=== PATIENT | male | born 1945 | race Caucasian/White ===

== ENCOUNTER 2017-10-24 10:25 | Observation (INO) | payer OTHER ==
[2017-10-24 10:48] VITALS: BMI 28.6
--- NOTE | 2017-10-24 10:48 | PDOC ---
History of Present Illness - General Chief Complaint: Cold Symptoms Stated Complaint: COUGH,SOB Time Seen by Provider: 10/24/17 10:48 History Source: Patient Exam Limitations: No Limitations - History of Present Illness Initial Comments: 10/24/17 10:48 72y M hx of COPD (no o2 at baseline), prostate ca presents with productive cough of white sputum, and nasal congestion. pt went to a urgent care and was started on a prednisone and abx yesterday (started seng prednisone but hasnt started zpack) - pt with persistent sob so presents today. pt denies any fever/ chills, chest pain, n/v, diaprhoesis, leg swelling, hemoptysis. Pt notes he gets similar symptoms approx twice a year, but has never been hospitalized for it.., his O2 ranges from the low 90s when he has these symptoms to the mid 90s at baseline. Pt denies any sick contact but notes he went to a and was exposed to many people. No recent travel. Past History - Past Medical History Allergies/Adverse Reactions: Allergies Allergy/AdvReac Type Severity Reaction Status Date / Time No Known Allergies Allergy Verified 10/24/17 10:31 Home Medications: Ambulatory Orders Albuterol Sulfate [Proventil HFA Inhaler -] 1 - 2 inh PO PRN PRN 10/24/17 Fluticasone/Salmeterol [Advair 250-50 Diskus] 1 each IH BID 10/24/17 Prednisone 40 mg PO DAILY 10/24/17 Tiotropium [place] [Spiriva] 1 inh PO DAILY 10/24/17 COPD: Yes Other medical history: PROSTATE CA - Suicide/Smoking/Psychosocial Hx Smoking History: Never smoked Have you smoked in the past 12 months: No If you are a former smoker, when did you quit?: 1999 Information on smoking cessation initiated: No Hx Alcohol Use: No Drug/Substance Use Hx: No Substance Use Type: None Review of Systems - Review of Systems Able to Perform ROS?: Yes Comments:: 10/24/17 11:31 Constitutional - no reported Fever, Chills, HEENT: no reported vision changes, sore throat Respiratory: +cough, sob, no reported hemoptysis Cardiac: no reported chest pain, palpitations, light headedness, leg swelling Abd/GI: no reported abd pain, nausea, vomiting, blood per rectum, melena, diarrhea : no reported dysuria, frequency, discharge Musculskelatal - no reported back pain, joint swelling skin - no reported bruising, erythema, rash neurological: no reported headache, numbness, focal weakness, tingling, ataxia, hematologic: no reported easy bruising, easy bleeding *Physical Exam - Vital Signs Last Vital Signs Temp Pulse Resp BP Pulse Ox 97.8 F 110 H 20 168/102 93 L 10/24/17 10:25 10/24/17 10:25 10/24/17 10:25 10/24/17 10:25 10/24/17 10:25 - Physical Exam Comments: 10/24/17 11:31 GENERAL: The patient is awake, alert, and fully oriented, Nontoxic - in no acute distress. HEAD: Normocephalic, atraumatic. EYES: extraocular movements intact, sclera anicteric, conjunctiva clear. ENT: Normal voice, Moist mucous membranes. NECK: Normal range of motion, supple LUNGS: Bilateral expiratory wheezing, decreased air movement, no acute respiratory distress, speaking complete sentences. HEART: Regular rate and rhythm, normal S1 and S2 without murmur, rub or gallop. ABDOMEN: Soft, nontender, normoactive bowel sounds. No guarding, no rebound. . No CVA tenderness EXTREMITIES: Normal range of motion, no edema. negative homans sign NEUROLOGICAL: No facial assymetry, Normal speech, PSYCH: Normal mood, normal affect. SKIN: Warm, Dry, normal turgor, Heart Score/ECG Review - ECG Impressions Comment:: 10/24/17 12:32 Twelve-lead EKG was performed and reviewed by me. There is normal sinus rhythm with a rate of 120 The axis is normal. The intervals are normal. There is normal R wave progression nonspecific ST abnormalities Impression: sinus tachycardia Medical Decision Making - Medical Decision Making 10/24/17 11:32 Suspect COPD exacerbation We'll obtain chest x-ray, we have DuoNeb Will reassess the patient is a patient's feeling improved and is able to ambulate without feeling dyspneic anticipate possible discharge. However if the patient does not feel better, or dyspneic with exertion will need further management 10/24/17 12:10 pt was ambuilated was hypxoic to 86, also dyspneic will admit for further management of COPD exaerbation will obtina blood work will give levaquin and mag pt already took his prednisone this morning 10/24/17 12:[address] Hall - will admit for further management of COPD exacerbation and hypoxia Case discussed in detail with admitting physician including history, physical exam and ancillary studies. Admitting physician has assumed care for the patient, will follow all pending diagnostics and will complete the evaluation and treatment. *DC/Admit/Observation/Transfer Diagnosis at time of Disposition: COPD exacerbation, Hypoxia - Discharge Dispostion Condition at time of disposition: Guarded Decision to Admit order: Yes - Referrals - Patient Instructions - Post Discharge Activity
[2017-10-24] MEDS ORDERED: ALBUTEROL SO4 2.5/IPRATROPIUM 0.5 INH SOL 3 ML VIAL.NEB. NEB ONE (10:59)
[2017-10-24] MEDS ORDERED: MAGNESIUM 1GM/D5W - 1 GM/100 ML IVPB IVPB ONE (12:41)
[2017-10-24 13:09] LABS: HEMOGLOBIN 17.6 GM/dl (11.7-16.9)
[2017-10-24 13:12] LABS: BASO % 0.3 % (0-2.0); EOS % 0.1 % (0-4.5); HEMATOCRIT 50.2 % (35.4-49); LYMPH % 8.7 % (8-40); MCH 28.6 pg (25.7-33.7); MCHC 35.1 g/dl (32.0-35.9); MEAN CELL VOLUME 81.5 fl (80-96); MEAN PLT VOLUME 7.5 fl (7.5-11.1); MONO % 4.6 % (3.8-10.2); NEUT % 86.3 % (42.8-82.8); PLATELET COUNT 213 K/MM3 (134-434); RBC 6.17 M/mm3 (4.00-5.60); RDW 13.9 % (11.9-15.9); WHITE BLOOD COUNT 11.1 K/mm3 (4.0-10.8)
[2017-10-24 13:25] LABS: ALBUMIN 4.3 g/dl (3.5-5.0); ALK PHOS 43 U/L (32-92); ANION GAP 10 (8-16); BILIRUBIN,TOTAL 1.2 mg/dl (0.2-1.0); BLOOD UREA NITROGEN 16 mg/dl (7-18); CALCIUM 8.8 mg/dl (8.4-10.2); CHLORIDE 100 mmol/L (98-107); CO2 23 mmol/L (22-28); CREATININE 0.8 mg/dl (0.6-1.3); GLUCOSE,RANDOM 125 mg/dl (74-106); POTASSIUM 4.1 mmol/L (3.5-5.1); SGOT/AST 28 U/L (10-42); SGPT/ALT 26 U/L (10-40); SODIUM 133 mmol/L (136-145); TOT PROT 7.6 g/dl (6.4-8.3)
[2017-10-24] MEDS ORDERED: SODIUM CHLORIDE 500 ML IV STA (14:10)
--- NOTE | 2017-10-24 14:12 | HP ---
Admitting History and Physical - Primary Care Physician PCP: Eloy Hall - Admission History of Present Illness: 72y M hx of COPD (no o2 at baseline), prostate ca presents with productive cough of white sputum, and nasal congestion. pt went to a urgent care and was started on a prednisone and abx yesterday (started seng prednisone but hasnt started zpack) - pt with persistent sob so presents today. pt denies any fever/ chills, chest pain, n/v, diaprhoesis, leg swelling, hemoptysis. Pt notes he gets similar symptoms approx twice a year, but has never been hospitalized for it.., his O2 ranges from the low 90s when he has these symptoms to the mid 90s at baseline. Pt denies any sick contact but notes he went to a and was exposed to many people. No recent travel. - Past Medical History Pulmonary: Yes: COPD - Smoking History Smoking history: Never smoked Have you smoked in the past 12 months: No If you are a former smoker, when did you quit?: 1999 - Alcohol/Substance Use Hx Alcohol Use: No Home Medications - Allergies Allergies/Adverse Reactions: Allergies Allergy/AdvReac Type Severity Reaction Status Date / Time No Known Allergies Allergy Verified 10/24/17 10:31 - Home Medications Home Medications: Ambulatory Orders Albuterol Sulfate [Proventil HFA Inhaler -] 1 - 2 inh PO PRN PRN 10/24/17 Fluticasone/Salmeterol [Advair 250-50 Diskus] 1 each IH BID 10/24/17 Prednisone 40 mg PO DAILY 10/24/17 Tiotropium [place] [Spiriva] 1 inh PO DAILY 10/24/17 Physical Examination Vital Signs: Vital Signs Temperature 97.9 F 10/24/17 11:48 Pulse Rate 119 H 10/24/17 11:48 Respiratory Rate 20 10/24/17 11:48 Blood Pressure 177/89 10/24/17 11:48 O2 Sat by Pulse Oximetry (%) 94 L 10/24/17 11:48 Constitutional: Yes: No Distress HENT: Yes: Atraumatic Neck: Yes: Supple Cardiovascular: Yes: Regular Rate and Rhythm Respiratory: Yes: Rhonchi, Wheezes Gastrointestinal: Yes: Normal Bowel Sounds Extremities: Yes: WNL Neurological: Yes: Alert, Oriented Labs: CBC, BMP 10/24/17 12:30 10/24/17 12:30 Imaging - Results X-ray: Report Reviewed Problem List - Problems (1) COPD exacerbation Assessment/Plan: iv steroids duo nebs abx for uri Code(s): J44.1 - CHRONIC OBSTRUCTIVE PULMONARY DISEASE W (ACUTE) EXACERBATION (2) Hypoxia Assessment/Plan: oxygen prn Code(s): R09.02 - HYPOXEMIA Assessment/Plan Laboratory Tests 10/24/17 10/24/17 12:30 12:30 WBC 11.1 H RBC 6.17 H Hgb 17.6 H Hct 50.2 H MCV 81.5 MCH 28.6 MCHC 35.1 RDW 13.9 Plt Count 213 MPV 7.5 Absolute Neuts (auto) 9.6 Neutrophils % 86.3 H Lymphocytes % 8.7 Monocytes % 4.6 Eosinophils % 0.1 Basophils % 0.3 Sodium 133 L Potassium 4.1 Chloride 100 Carbon Dioxide 23 Anion Gap 10 BUN 16 Creatinine 0.8 Creat Clearance w eGFR > 60 Random Glucose 125 H Calcium 8.8 Total Bilirubin 1.2 H AST 28 ALT 26 Alkaline Phosphatase 43 Total Protein 7.6 Albumin 4.3 Active Medications Generic Name Dose Route Start Last Admin Trade Name Freq PRN Reason Stop Dose Admin Sodium Chloride 500 mls @ 500 mls/hr 10/24/17 14:10 Normal Saline - IV 10/24/17 15:09 ASDIR STA
[2017-10-24] MEDS ORDERED: ALBUTEROL SO4 2.5/IPRATROPIUM 0.5 INH SOL 3 ML VIAL.NEB. NEB PRN (14:13)
[2017-10-24] MEDS ORDERED: ACETAMINOPHEN 325 MG TABLET (FP) PO PRN (14:15)
[2017-10-24] MEDS: methylPREDNISolone NA SUCC 125 MG/2 ML VIAL IVPUSH SCH (17:31)
[2017-10-24] MEDS: CEFTRIAXONE 1 GM/50 ML BAG IVPB SCH (17:31)
[2017-10-24] MEDS: TIOTROPIUM BROMIDE 18 MCG CAPSULES IH SCH (19:44)
[2017-10-24] MEDS: BUDESONIDE/FORMETEROL FUMARATE 80/4.5 mcg INHALER IH SCH (21:57)
[2017-10-25] MEDS ORDERED: PT OWN MED DRAWER 7, Y5N ONE ×2 (02:08→10:33)
[2017-10-25] MEDS: methylPREDNISolone NA SUCC 125 MG/2 ML VIAL IVPUSH SCH ×2 (02:09→10:37)
[2017-10-25 06:09] VITALS: BP 142/62; PULSE 93; TEMP 98.1
--- NOTE | 2017-10-25 09:29 | DS ---
Physical Examination Vital Signs: Vital Signs Temperature 98.1 F 10/25/17 06:00 Pulse Rate 93 H 10/25/17 06:00 Respiratory Rate 20 10/25/17 06:00 Blood Pressure 142/62 10/25/17 06:00 O2 Sat by Pulse Oximetry (%) 94 L 10/25/17 06:00 Constitutional: Yes: No Distress HENT: Yes: Atraumatic Neck: Yes: Supple Cardiovascular: Yes: Regular Rate and Rhythm Respiratory: Yes: Rhonchi Gastrointestinal: Yes: Normal Bowel Sounds Extremities: Yes: WNL Edema: No Neurological: Yes: Alert, Oriented Labs: CBC, BMP 10/24/17 12:30 10/24/17 12:30 Discharge Summary Reason For Visit: COPD Current Active Problems COPD exacerbation (Acute) Hypoxia (Acute) Condition: Guarded - Instructions Diet, Activity, Other Instructions: continue your prednisone as given by urgent care see your doctor next week Disposition: HOME - Home Medications Comprehensive Discharge Medication List: Ambulatory Orders Albuterol Sulfate [Proventil HFA Inhaler -] 1 - 2 inh PO PRN PRN 10/24/17 Fluticasone/Salmeterol [Advair 250-50 Diskus] 1 each IH BID 10/24/17 Prednisone 40 mg PO DAILY 10/24/17 Tiotropium [place] [Spiriva] 1 inh PO DAILY 10/24/17 Amoxicillin/Potassium Clav [Augmentin 875-125 Tablet] 1 each PO BID #14 tablet 10/25/17 [facility] home
--- NOTE | 2017-10-25 09:59 | CON.ID ---
Consult Consult Specialty:: infectious diseases Reason for Consultation:: bronchitis,copd - History of Present Illness Chief Complaint: cough,sob History of Present Illness: 72y M hx of COPD prostate ca presents with productive cough of white sputum, and nasal congestion. pt went to a urgent care and was started on a prednisone and abx yesterday (started seng prednisone but hasnt started zpack) - pt with persistent sob so presents today. pt denies any fever/chills, chest pain, n/v, diaprhoesis, leg swelling, hemoptysis. Pt notes he gets similar symptoms approx twice a year, but has never been hospitalized for it.., his O2 ranges from the low 90s when he has these symptoms to the mid 90s at baseline. Pt denies any sick contact but notes he went to a and was exposed to many people. No recent travel. patient is here with his and does mention he is very sob and did not improve for couple of days and that is why he came to the hospital currently he is sob but stable - History Source History Provided By: Patient Limitations to Obtaining History: No Limitations - Past Medical History Pulmonary: Yes: COPD - Alcohol/Substance Use Hx Alcohol Use: No - Smoking History Smoking history: Never smoked Have you smoked in the past 12 months: No If you are a former smoker, when did you quit?: 1999 Home Medications - Allergies Allergies/Adverse Reactions: Allergies Allergy/AdvReac Type Severity Reaction Status Date / Time No Known Allergies Allergy Verified 10/24/17 10:31 - Home Medications Home Medications: Ambulatory Orders Albuterol Sulfate [Proventil HFA Inhaler -] 1 - 2 inh PO PRN PRN 10/24/17 Fluticasone/Salmeterol [Advair 250-50 Diskus] 1 each IH BID 10/24/17 Prednisone 40 mg PO DAILY 10/24/17 Tiotropium [place] [Spiriva] 1 inh PO DAILY 10/24/17 Amoxicillin/Potassium Clav [Augmentin 875-125 Tablet] 1 each PO BID #14 tablet 10/25/17 Review of Systems - Review of Systems Constitutional: reports: No Symptoms Eyes: reports: No Symptoms HENT: reports: No Symptoms Neck: reports: No Symptoms Cardiovascular: reports: No Symptoms Respiratory: reports: SOB, SOB on Exertion, Wheezing Gastrointestinal: reports: No Symptoms Genitourinary: reports: No Symptoms Musculoskeletal: reports: No Symptoms Integumentary: reports: No Symptoms Neurological: reports: No Symptoms Endocrine: reports: No Symptoms Hematology/Lymphatic: reports: No Symptoms Psychiatric: reports: No Symptoms Physical Exam Vital Signs: Vital Signs Temperature 98.1 F 10/25/17 06:00 Pulse Rate 93 H 10/25/17 06:00 Respiratory Rate 20 10/25/17 06:00 Blood Pressure 142/62 10/25/17 06:00 O2 Sat by Pulse Oximetry (%) 94 L 10/25/17 06:00 Constitutional: Yes: Well Nourished, No Distress, Calm Cardiovascular: Yes: Regular Rate and Rhythm Respiratory: Yes: Regular, On Nasal O2, Poor Air Entry, Rhonchi, Wheezes Gastrointestinal: Yes: Normal Bowel Sounds, Soft Musculoskeletal: Yes: WNL Extremities: Yes: WNL Neurological: Yes: Alert, Oriented Psychiatric: Yes: Alert, Oriented Labs: CBC, BMP 10/24/17 12:30 10/24/17 12:30 Imaging - Results Chest X-ray: Report Reviewed, Image Reviewed Assessment/Plan Problem List - Problems (1) COPD exacerbation Code(s): J44.1 - CHRONIC OBSTRUCTIVE PULMONARY DISEASE W (ACUTE) EXACERBATION (2) Hypoxia Code(s): R09.02 - HYPOXEMIA i am not too impressed with his findings but knowing patients history will start him on abx if patient remains stable will switch him to oral abx tomorrow plan abx incentive venita rest as per the team
--- NOTE | 2017-10-25 10:06 | PN ---
Progress Note, Physician History of Present Illness: stable looks much better breathing better off of nasal canula - Current Medication List Current Medications: Active Medications Acetaminophen (Tylenol -) 650 mg PO Q6H PRN PRN Reason: FEVER Albuterol/Ipratropium (Duoneb -) 1 amp NEB Q4H PRN PRN Reason: SHORTNESS OF BREATH Last Admin: 10/24/17 17:31 Dose: 1 amp Budesonide/Formoterol Fumarate (Symbicort 80/4.5mcg -) 2 puff IH BID ROBYN Last Admin: 10/24/17 21:57 Dose: 2 puff Ceftriaxone Sodium (Rocephin 1gm Ivpb (Pre-Docked)) 1 gm in 50 mls @ 100 mls/ hr IVPB DAILY ROBYN; Protocol Last Admin: 10/24/17 17:31 Dose: 100 mls/hr Methylprednisolone Sodium Succinate (Solu-Medrol -) 60 mg IVPUSH Q8H-IV ROBYN Last Admin: 10/25/17 02:09 Dose: 60 mg Tiotropium [place] (Spiriva -) 1 puff IH DAILY ROBYN Last Admin: 10/24/17 19:44 Dose: Not Given - Objective Vital Signs: Vital Signs Temperature 98.1 F 10/25/17 06:00 Pulse Rate 93 H 10/25/17 06:00 Respiratory Rate 20 10/25/17 06:00 Blood Pressure 142/62 10/25/17 06:00 O2 Sat by Pulse Oximetry (%) 94 L 10/25/17 06:00 Constitutional: Yes: No Distress, Calm Cardiovascular: Yes: Regular Rate and Rhythm Respiratory: Yes: Regular, Poor Air Entry (bases) Gastrointestinal: Yes: Normal Bowel Sounds, Soft Musculoskeletal: Yes: WNL Extremities: Yes: WNL Neurological: Yes: Alert, Oriented Psychiatric: Yes: Alert, Oriented Labs: CBC, BMP 10/24/17 12:30 10/24/17 12:30 Assessment/Plan Problem List - Problems (1) COPD exacerbation Code(s): J44.1 - CHRONIC OBSTRUCTIVE PULMONARY DISEASE W (ACUTE) EXACERBATION (2) Hypoxia Code(s): R09.02 - HYPOXEMIA plan doing well can be d/gloria home on oral augmentin neb treatment follow up
[2017-10-25] MEDS: TIOTROPIUM BROMIDE 18 MCG CAPSULES IH SCH (10:36)
[2017-10-25] MEDS: BUDESONIDE/FORMETEROL FUMARATE 80/4.5 mcg INHALER IH SCH (10:37)
[2017-10-25] MEDS: CEFTRIAXONE 1 GM/50 ML BAG IVPB SCH (10:37)
--- NOTE | 2017-10-26 09:17 | EKG ---
Test Reason : Blood Pressure : / mmHG Vent. Rate : 120 BPM Atrial Rate : 120 BPM P-R Int : 150 ms QRS Dur : 092 ms QT Int : 334 ms P-R-T Axes : 077 016 077 degrees QTc Int : 472 ms SINUS TACHYCARDIA NONSPECIFIC ST ABNORMALITY ABNORMAL ECG NO PREVIOUS ECGS AVAILABLE Confirmed by YASBEL CHADWICK, MARIBEL ([id number]) on 10/26/2017 9:17:20 AM Referred By: SLICK Confirmed By:MARIBEL GRADY MD
== END 2017-10-25 11:00 | disposition home or self-care (01) ==
LOC: FER 10:25 → FM/S 12:31 → UNDOADMIN 12:31 → INTOOBSV 14:14 → FM/S 14:14
PROVIDERS: ADMIT Internal Medicine; ATTEND Internal Medicine
PROC: 3E03329 Introduction of Other Anti-infective into Peripheral Vein, Percutaneous Approach (ICD-10-PCS; principal; 2017-10-24)
PROC: 3E0333Z Introduction of Anti-inflammatory into Peripheral Vein, Percutaneous Approach (ICD-10-PCS; 2017-10-24)
PROC: 3E0337Z Introduction of Electrolytic and Water Balance Substance into Peripheral Vein, Percutaneous Approach (ICD-10-PCS; 2017-10-24)
DX: J44.1 Chronic obstructive pulmonary disease with (acute) exacerbation (principal); R09.02 Hypoxemia; Z85.46 Personal history of malignant neoplasm of prostate
CPT/HCPCS: 36415; 71046-TC-FY; 80053; 85025; 93005; 96361; 96365; 96366; 96368; 96375; 99285-25; G0378; J7620

== ENCOUNTER 2018-05-09 16:17 | Emergency (ER) | payer OTHER ==
[2018-05-09 16:41] VITALS: BP 136/91; PULSE 98; TEMP 98.1; BMI 28.5
--- NOTE | 2018-05-09 16:53 | PDOC ---
History of Present Illness - General Chief Complaint: Nasal Bleeding Stated Complaint: NOSEBLEED Time Seen by Provider: 05/09/18 16:30 History Source: Patient Exam Limitations: No Limitations - History of Present Illness Initial Comments: 05/09/18 16:49 HPI 73 YOM with h/o CLL, in remission, COPD (no O2 dependence, on inhalers) presenting with epistaxis since 12pm. of note he has been having intermittent episodes of epistaxis x 1 week; last week 1 episode lasting 1-2 hours. Two episodes this week, with second presentation today. denies digital manipulation or nose blowing. no URI sx. admits to very dry environment at home with the use of heat. no syncope, cp or sob, dizziness, GERONIMO, n/v/d, AP, weakness or paresthesias. No sick contacts or travel. No new changes in medications. no ASA/blood thinner use. he went to [facility] today, was briefly seen by physician/ENT, but did not have nasal packing placed. Allergies: NKA Past Medical History: CLL Social history: Lives with family. No smoking. No alcohol. No illicit drugs. Surgical history: PMD: ========= ROS Constitutional: no fevers or chills. HEENT: no headache or dizziness. No congestion. No visual/hearing disturbances. +epistaxis. CVS: no cp or syncope. Resp: no sob. No cough. Gastrointestinal: no abdominal pain, nausea or vomiting. SKIN: no redness or skin changes, no discharge, no rash. No wounds. Hematologic: no easy bruising/bleeding. NEUROLOGIC: No headache, dizziness, LOC or altered mental status. No weakness, numbness or tingling. Allergic/Immunologic: no allergies All other systems reviewed and negative, or as documented in HPI. PE: General: Well appearing, awake and alert, NAD. HEENT: NCAT, PERRL, EOMI, clear conjunctiva, anicteric, moist mucus membranes, blood in posterior oropharynx, no oral lesions.. bilateral nares with blood clots, no active bleeding noted. blood along the nasal septum. normal phonation. airway intact. Neck: neck supple, FROM Resp: CTAB, normal and even respirations, no respiratory distress CVS: RRR, no murmurs, 2+ peripheral pulses throughout, no peripheral edema Abdomen: soft, NTND, no peritoneal signs. MSK: no edema, JONES x4, ROM intact. No clubbing or cyanosis. normal bulk and tone. Extremities: no calf tenderness Neuro: alert, oriented appropriately; clear speech. Skin: warm and well perfused, cap refill <2 sec, normal color Past History - Past Medical History Allergies/Adverse Reactions: Allergies Allergy/AdvReac Type Severity Reaction Status Date / Time No Known Allergies Allergy Verified 05/09/18 16:32 Home Medications: Ambulatory Orders Albuterol Sulfate [Proventil HFA Inhaler -] 1 - 2 inh PO PRN PRN 10/24/17 Fluticasone/Salmeterol [Advair 250-50 Diskus] 1 each IH BID 10/24/17 Tiotropium [place] [Spiriva] 1 inh PO DAILY 10/24/17 Anemia: No Asthma: No Cancer: Yes (prostate cancer) CVA: No COPD: Yes CHF: No Dementia: No Diabetes: No GI Disorders: No Disorders: Yes (incontinence) HTN: No Hypercholesterolemia: No Liver Disease: No Seizures: No Thyroid Disease: No - Suicide/Smoking/Psychosocial Hx Smoking History: Never smoked Have you smoked in the past 12 months: No If you are a former smoker, when did you quit?: 1999 Information on smoking cessation initiated: No Hx Alcohol Use: No Drug/Substance Use Hx: No Substance Use Type: None Hx Substance Use Treatment: No *Physical Exam - Vital Signs Last Vital Signs Temp Pulse Resp BP Pulse Ox 98.1 F 98 H 18 136/91 99 05/09/18 16:17 05/09/18 16:17 05/09/18 16:17 05/09/18 16:17 05/09/18 16:17 Moderate Sedation - Procedure Monitoring Vital Signs: Procedure Monitoring Vital Signs Temperature 98.1 F 05/09/18 16:17 Pulse Rate 98 H 05/09/18 16:17 Respiratory Rate 18 05/09/18 16:17 Blood Pressure 136/91 05/09/18 16:17 O2 Sat by Pulse Oximetry (%) 99 05/09/18 16:17 Procedures - Additional Procedures Additional Procedures: other Progress: 05/09/18 18:27 epistaxis right nare, anterior. topical afrin and then topical cautery. hemostasis controlled. no further episodes, tolerated procedure well c/o complications. ED Treatment Course - LABORATORY CBC & Chemistry Diagram: 05/09/18 17:03 05/09/18 17:03 Medical Decision Making - Medical Decision Making 05/09/18 18:25 hpi as documented VS wnl labs normal, coags and H/H normal, mild leukocytosis, likely stress state/ reactive. lytes otherwise wnl suspecting anterior epistaxis from right after blowing all the clots out. small area of erythema and spot that is suggesting of a small bleed originating from capillaries of rt anterior septum cauterized topically hemostasis achieved. no further events, VS wnl. well appearing, no airway or respiratory compromise. Pt to be discharged in stable condition. Patient and family made aware of impression and plan, return precautions discussed (including but not limited to worsening pain or symptoms), fevers, or signs of infection, chest pain, respiratory distress, inability to tolerate oral intake, dehydration, syncope, or neurologic changes). Follow up with PMD and/or specialist as recommended, follow up information provided, take medications as instructed for duration of time. continue with supportive care, avoid triggers and precipitants. Patient does not suffer from an acute life-threatening medical condition at this time she is safe for outpatient follow-up. 05/09/18 18:26 *DC/Admit/Observation/Transfer Diagnosis at time of Disposition: Epistaxis - Discharge Dispostion Disposition: HOME Condition at time of disposition: Stable Decision to Admit order: No - Referrals Referrals: David Pak [Primary Care Provider] - Wale Bustamante MD [Staff Physician] - - Patient Instructions Printed Discharge Instructions: DI for Nosebleed Additional Instructions: Your blood work is all normal your nasal capillaries were cauterized topically to stop the area of bleeding vessel that was seen Avoid nose blowing or picking. humidified air and avoid dry heat especially during the winter time can also avoid fragile vessels from bleeding Avoid nose blowing or picking. Afrin sprays every 12 hours as needed for congestion, do not use more than 3 days Compress the nasal bridge for a solid 15 minutes of compression to stop any bleeding Follow up with your primary doctor and ENT specialist referrals given return precautions for worsening symptoms including fainting, pallor, worsening bleeding that you cannot control, passing out, dizziness, chest pain and shortness of breath. - Post Discharge Activity
[2018-05-09 17:14] LABS: BASO % 0.6 % (0-2.0); EOS % 0.9 % (0-4.5); HEMATOCRIT 36.5 % (35.4-49); HEMOGLOBIN 12.3 GM/dl (11.7-16.9); LYMPH % 16.5 % (8-40); MCH 28.9 pg (25.7-33.7); MCHC 33.8 g/dl (32.0-35.9); MEAN CELL VOLUME 85.5 fl (80-96); MEAN PLT VOLUME 7.8 fl (7.5-11.1); MONO % 7.3 % (3.8-10.2); NEUT % 74.7 % (42.8-82.8); PLATELET COUNT 203 K/MM3 (134-434); RBC 4.26 M/mm3 (4.00-5.60); RDW 14.4 % (11.9-15.9); WHITE BLOOD COUNT 12.8 K/mm3 (4.0-10.8)
[2018-05-09 17:29] LABS: ACTIVATED PTT 24.3 SECONDS (25.2-36.5)
[2018-05-09 17:32] LABS: ALBUMIN 3.9 g/dl (3.4-5.0); ALK PHOS 44 U/L (45-117); ANION GAP 6 MMOL/L (8-16); BILIRUBIN,TOTAL 1.2 mg/dl (0.2-1); BLOOD UREA NITROGEN 32 mg/dl (7-18); CALCIUM 8.5 mg/dl (8.5-10); CHLORIDE 104 mmol/L (98-107); CO2 25 mmol/L (21-32); GLUCOSE,RANDOM 109 mg/dl (74-106); SGOT/AST 19 U/L (15-37); SGPT/ALT 21 U/L (13-61); SODIUM 135 mmol/L (136-145); TOT PROT 6.7 g/dl (6.4-8.2)
[2018-05-09 17:34] LABS: INR 1.28 (0.82-1.09); PROTHROMBIN TIME (PATIENT) 14.3 SEC (10.2-13.0)
[2018-05-09] MEDS ORDERED: LIDOCAINE 1%/EPI 1:100000 (20 ML MULTI DOSE VIAL) PNB ONE (17:39)
[2018-05-09] MEDS ORDERED: OXYMETAZOLINE 0.05% NASAL SOLUTION 15 ML BOTTLE NS ONE ×2 (17:40→17:45)
== END 2018-05-09 18:35 | disposition home or self-care (01) ==
LOC: FER 16:17
PROC: 093K7ZZ Control Bleeding in Nasal Mucosa and Soft Tissue, Via Natural or Artificial Opening (ICD-10-PCS; principal; 2018-05-09)
DX: R04.0 Epistaxis (principal); Z87.891 Personal history of nicotine dependence; Z85.46 Personal history of malignant neoplasm of prostate
CPT/HCPCS: 30905; 36415; 80053; 85025; 85610; 85730; 99283-25

== ENCOUNTER 2018-09-23 09:31 | Emergency (ER) | payer OTHER ==
[2018-09-23] MEDS ORDERED: ALBUTEROL SO4 2.5/IPRATROPIUM 0.5 INH SOL 3 ML VIAL.NEB. NEB ONE ×2 (09:38→10:09)
[2018-09-23 09:49] VITALS: BP 172/83; PULSE 125; BMI 29.1
[2018-09-23] MEDS ORDERED: ALBUTEROL SO4 0.083% IH SOL 2.5 MG/3 ML VIAL.NEB. NEB ONE (10:09)
[2018-09-23] MEDS ORDERED: ACETAMINOPHEN 1000 MG/100 ML VIAL (NON FORMULARY) IVPB ONE (10:22)
--- NOTE | 2018-09-23 10:26 | PDOC ---
History of Present Illness - History of Present Illness Initial Comments: 09/23/18 10:20 73m with pmh of COPD and CLL presents to the ED with cold symptoms since Saturday night and shortness of breath on exertion that feel like his usual COPD symptoms. He complains of productive cough with white sputum, sore throat, mild muscle aches and shortness of breath in the shower or upon exertion. Denies chest pain, sob at rest, leg swelling or subjective fever. He denies dysuria. Took one dose of Advair and Spiriva this morning with some symptom relief. <Noe Ware - Last Filed: 09/23/18 13:18> <Kit Woodall - Last Filed: 09/23/18 17:32> - General Chief Complaint: Respiratory Stated Complaint: COLD DIFFICULTY BREATHING Time Seen by Provider: 09/23/18 09:37 Past History - Past Medical History Anemia: No Asthma: No Cancer: Yes (prostate cancer) CVA: No COPD: Yes CHF: No Dementia: No Diabetes: No GI Disorders: No Disorders: Yes (incontinence) HTN: No Hypercholesterolemia: No Liver Disease: No Seizures: No Thyroid Disease: No Other medical history: CLL - Suicide/Smoking/Psychosocial Hx Smoking History: Former smoker Have you smoked in the past 12 months: No If you are a former smoker, when did you quit?: 19 YEARS AGO Information on smoking cessation initiated: No Hx Alcohol Use: Yes (SOCIAL) Drug/Substance Use Hx: No Substance Use Type: None Hx Substance Use Treatment: No <Noe Ware - Last Filed: 09/23/18 13:18> <Kit Woodall - Last Filed: 09/23/18 17:32> - Past Medical History Allergies/Adverse Reactions: Allergies Allergy/AdvReac Type Severity Reaction Status Date / Time No Known Allergies Allergy Verified 09/23/18 09:33 Home Medications: Ambulatory Orders Albuterol Sulfate [Proventil HFA Inhaler -] 1 - 2 inh PO PRN PRN 10/24/17 Fluticasone/Salmeterol [Advair 250-50 Diskus] 1 each IH BID 10/24/17 Tiotropium [place] [Spiriva] 1 inh PO DAILY 10/24/17 Azithromycin [Zithromax Tri-Harrison (3 DAYS) -] 500 mg PO DAILY #3 tablet 09/23/18 Prednisone [Prednisone 50 MG TABLETS] 50 mg PO DAILY #3 tablet 09/23/18 Review of Systems - Review of Systems Able to Perform ROS?: Yes Is the patient limited [place] proficient: No Constitutional: No: Symptoms Reported HEENTM: Yes: See HPI Respiratory: Yes: See HPI Cardiac (ROS): No: Symptoms Reported ABD/GI: No: Symptoms Reported : No: Symptoms Reported Musculoskeletal: No: Symptoms Reported Integumentary: No: Symptoms Reported All Other Systems: Reviewed and Negative <Noe Ware - Last Filed: 09/23/18 13:18> *Physical Exam - Vital Signs Last Vital Signs Temp Pulse Resp BP Pulse Ox 101.1 F H 125 H 20 172/83 H 92 L 09/23/18 10:04 09/23/18 09:32 09/23/18 09:32 09/23/18 09:32 09/23/18 09:32 - Physical Exam General Appearance: Yes: Nourished, Appropriately Dressed. No: Apparent Distress HEENT: positive: EOMI, SHILPA, Normal ENT Inspection Respiratory/Chest: positive: Lungs Clear, Decreased Breath Sounds (lower right lobe). negative: Chest Tender, Respiratory Distress Cardiovascular: positive: Regular Rhythm, S1, S2, Tachycardia Gastrointestinal/Abdominal: positive: Normal Bowel Sounds, Flat, Soft. negative : Tender Musculoskeletal: positive: Normal Inspection Integumentary: positive: Normal Color, Dry, Warm Neurologic: positive: Fully Oriented, Alert, Normal Mood/Affect, Normal Response <Noe Ware - Last Filed: 09/23/18 13:18> - Vital Signs Last Vital Signs Temp Pulse Resp BP Pulse Ox 98.5 F 125 H 20 172/83 H 92 L 09/23/18 12:29 09/23/18 09:32 09/23/18 09:32 09/23/18 09:32 09/23/18 09:32 <Kit Woodall - Last Filed: 09/23/18 17:32> ED Treatment Course - LABORATORY CBC & Chemistry Diagram: 09/23/18 10:29 09/23/18 10:29 - RADIOLOGY Radiology Studies Ordered: Category Date Time Status CHEST PA & LAT [RAD] Stat Radiology 09/23/18 09:38 Completed <Noe Ware - Last Filed: 09/23/18 13:18> - LABORATORY CBC & Chemistry Diagram: 09/23/18 10:29 09/23/18 10:29 - ADDITIONAL ORDERS Additional order review: Laboratory Results 09/23/18 10:29 Sodium 137 Potassium 4.0 Chloride 101 Carbon Dioxide 25 Anion Gap 11 BUN 18.0 Creatinine 1.0 Est GFR (CKD-EPI)AfAm 86.76 Est GFR (CKD-EPI)NonAf 74.86 Random Glucose 119 H Calcium 8.7 Total Bilirubin 1.7 H AST 18 ALT 18 Alkaline Phosphatase 52 Total Protein 7.3 Albumin 4.5 09/23/18 10:29 RBC 6.43 H MCV 81.2 MCHC 33.0 RDW 15.2 MPV 8.1 Neutrophils % 88.4 H Lymphocytes % 6.4 L D Monocytes % 3.5 L Eosinophils % 1.5 Basophils % 0.2 - Medications Given in the ED: ED Medications Discontinued Medications Generic Name Dose Route Start Last Admin Trade Name Freq PRN Reason Stop Dose Admin Acetaminophen 1,000 mg 09/23/18 10:22 09/23/18 10:39 Ofirmev Injection - IVPB 09/23/18 10:23 1,000 mg ONCE ONE Administration Albuterol/Ipratropium 2 amp 09/23/18 09:38 09/23/18 10:27 Duoneb - NEB 09/23/18 09:39 2 amp ONCE ONE Administration Sodium Chloride 1,000 mls @ 1,000 mls/hr 09/23/18 11:59 09/23/18 12:15 Normal Saline - IV 09/23/18 12:58 1,000 mls/hr ASDIR STA Administration Methylprednisolone Sodium Succinate 125 mg 09/23/18 10:39 09/23/18 10:50 Solu-Medrol - IVPB 09/23/18 10:40 125 mg ONCE ONE Administration <Kit Woodall S - Last Filed: 09/23/18 17:32> Medical Decision Making - Medical Decision Making 09/23/18 10:37 73M with COPD presenting with fever and cold symptoms with sob on exertion. Will treat the fever with Tylenol and give Duoneb and solumedrol treatment for the sob. Basic labs, strep and flu pending. Viral URI vs pneumonia vs strep vs influenza. cxr: No evidence of active pulmonary disease. COPD. No pleural effusion, or pneumothorax is seen. Reevaluate after treatment and dispo 09/23/18 11:59 Patient feels better but still has temp of 101. Will give bolus of ns and recheck vitals. 09/23/18 12:53 Temperature now back to normal. Called Lab at [facility]. Did not receive sample of flu swab. Specimen still at [facility]. Has not been sent. Patient feels better. <Noe Ware - Last Filed: 09/23/18 13:18> *DC/Admit/Observation/Transfer - Discharge Dispostion Decision to Admit order: No <Noe Ware - Last Filed: 09/23/18 13:18> <Kit Woodall - Last Filed: 09/23/18 17:32> Diagnosis at time of Disposition: COPD exacerbation, Bronchitis - Discharge Dispostion Disposition: HOME Condition at time of disposition: Improved - Prescriptions Prescriptions: Azithromycin [Zithromax Tri-Harrison (3 DAYS) -] 500 mg PO DAILY #3 tablet Prednisone [Prednisone 50 MG TABLETS] 50 mg PO DAILY #3 tablet - Patient Instructions Printed Discharge Instructions: DI for Viral Syndrome Additional Instructions: Follow up with your primary care provider. Come back to the emergency department for any new, worsening or concerning symptom.
[2018-09-23] MEDS ORDERED: ACETAMINOPHEN INJECTION 100 ML IVPB ONE (10:34)
[2018-09-23] MEDS ORDERED: methylPREDNISolone NA SUCC 125 MG/2 ML VIAL IVPB ONE (10:39)
[2018-09-23] MEDS ORDERED: methylPREDNISolone NA SUCC 125 MG/2 ML VIAL ONE (10:42)
[2018-09-23 10:53] LABS: ALBUMIN 4.5 g/dl (3.4-5.0); BILIRUBIN,TOTAL 1.7 mg/dl (0.2-1); CALCIUM 8.7 mg/dl (8.5-10); TOT PROT 7.3 g/dl (6.4-8.2)
[2018-09-23 10:55] LABS: BASO % 0.2 % (0-2.0); EOS % 1.5 % (0-4.5); HEMATOCRIT 52.2 % (35.4-49); HEMOGLOBIN 17.2 GM/dl (11.7-16.9); LYMPH % 6.4 % (8-40); MCH 26.8 pg (25.7-33.7); MEAN CELL VOLUME 81.2 fl (80-96); MEAN PLT VOLUME 8.1 fl (7.5-11.1); MONO % 3.5 % (3.8-10.2); NEUT % 88.4 % (42.8-82.8); PLATELET COUNT 117 K/MM3 (134-434); RBC 6.43 M/mm3 (4.00-5.60); RDW 15.2 % (11.9-15.9); WHITE BLOOD COUNT 8.6 K/mm3 (4.0-10.8)
[2018-09-23] MEDS ORDERED: SODIUM CHLORIDE 1,000 ML IV STA (11:59)
[2018-09-23 12:29] VITALS: TEMP 98.5
--- NOTE | 2018-09-23 13:28 | PDOC ---
Attending Attestation - Resident Resident Name: WareNoe - ED Attending Attestation I have performed the following: I have examined & evaluated the patient, The case was reviewed & discussed with the resident, I agree w/resident's findings & plan, Exceptions are as noted - HPI HPI: 73 y/o male walked in along with , c/o fever , cough sob after few days of URI symptoms 09/23/18 13:21 - Physicial Exam PE: Alert, oriented x 3, ambulatory, febrile Pharynx mildly hyperemic Lungs occ wheezing, crackles Heart S1, S2 09/23/18 13:23 09/23/18 13:28 - Medical Decision Making history of COPD with exacerbations Currently low grade fever, coughing Improving with iv steroids, iv fluids and Inhalation Therapy 09/23/18 13:28 09/23/18 13:31 09/23/18 13:47 Heart Score/ECG Review - Age Age: >/= 65 - Risk Factors Risk Factors Heart Score: Yes Hx Diabetes Based on the list above the patient has:: 1-2 risk factors - ECG Intrepretation Rhythm: Regular Rhythm - P and AK Delta Wave(s) Present: No WPW: No
--- NOTE | 2018-09-24 11:20 | EKG ---
Test Reason : Blood Pressure : / mmHG Vent. Rate : 120 BPM Atrial Rate : 120 BPM P-R Int : 146 ms QRS Dur : 082 ms QT Int : 298 ms P-R-T Axes : 065 039 082 degrees QTc Int : 421 ms SINUS TACHYCARDIA POSSIBLE LEFT ATRIAL ENLARGEMENT NONSPECIFIC ST AND T WAVE ABNORMALITY ABNORMAL ECG WHEN COMPARED WITH ECG OF 24-OCT-2017 11:51, NO SIGNIFICANT CHANGE WAS FOUND Confirmed by YSABEL CHADWICK, MARIBEL ([id number]) on 09/24/2018 11:20:02 AM Referred By: WILFREDO THAPA Confirmed By:MARIBEL GRADY MD
== END 2018-09-23 13:30 | disposition home or self-care (01) ==
LOC: FER 09:31
PROC: 3E033NZ Introduction of Analgesics, Hypnotics, Sedatives into Peripheral Vein, Percutaneous Approach (ICD-10-PCS; principal; 2018-09-23)
PROC: 3E0F7GC Introduction of Other Therapeutic Substance into Respiratory Tract, Via Natural or Artificial Opening (ICD-10-PCS; 2018-09-23)
PROC: 3E033GC Introduction of Other Therapeutic Substance into Peripheral Vein, Percutaneous Approach (ICD-10-PCS; 2018-09-23)
PROC: 3E0337Z Introduction of Electrolytic and Water Balance Substance into Peripheral Vein, Percutaneous Approach (ICD-10-PCS; 2018-09-23)
DX: J44.9 Chronic obstructive pulmonary disease, unspecified (principal); J40 Bronchitis, not specified as acute or chronic; Z87.891 Personal history of nicotine dependence; Z85.46 Personal history of malignant neoplasm of prostate
CPT/HCPCS: 36415; 71046-TC-FY; 80053; 85025; 87040; 87070; 87804; 87880; 93005; 94640; 96361; 96374; 96375; 99284-25; J0131; J7030

== ENCOUNTER 2021-03-22 07:26 | Day surgery (SDC) | payer OTHER ==
[2021-03-22 07:54] VITALS: BMI 27.8
[2021-03-22 11:25] VITALS: TEMP 97.8
[2021-03-22 11:28] VITALS: BP 134/67; PULSE 87
== END 2021-03-22 10:15 | disposition home or self-care (01) ==
LOC: FASU 07:26
PROVIDERS: ATTEND Ophthalmology
PROC: 08RK3JZ Replacement of Left Lens with Synthetic Substitute, Percutaneous Approach (ICD-10-PCS; principal; 2021-03-22)
DX: H26.8 Other specified cataract (principal)

== ENCOUNTER 2021-04-26 08:07 | Day surgery (SDC) | payer OTHER ==
[2021-04-14 12:10] VITALS: BMI 27.8
[2021-04-26 08:55] VITALS: TEMP 97.8
[2021-04-26] MEDS: CIPROFLOXACIN 0.3% EYE DROPS 5 ML BOTTLE ONE ×3 (08:55→09:05)
[2021-04-26] MEDS: TROPICAMIDE 1% OPHTH SOLN 15 ML BOTTLE ONE ×3 (08:55→09:05)
[2021-04-26] MEDS: CYCLOPENTOLATE 2% OPHTH SOLN 2 ML BOTTLE ONE ×3 (08:55→09:05)
[2021-04-26] MEDS: PHENYLEPHRINE 2.5% OPHTH SOLN 15 ML BOTTLE ONE ×3 (08:55→09:05)
[2021-04-26] MEDS ORDERED: MIDAZOLAM HCL 2 MG/2 ML SINGLE DOSE VIAL ONE (10:28)
[2021-04-26] MEDS ORDERED: CARBACHOL 0.01% INTRA-OCULAR 1.5 ML VIAL ONE (10:43)
[2021-04-26] MEDS ORDERED: NEO/POLYMYX B SULF/DEXAMETH OPHTHALMIC 5ML BOTTLE ONE (10:43)
[2021-04-26] MEDS ORDERED: LIDOCAINE 1% P/F 10 MG/ML VIAL ONE (10:43)
[2021-04-26] MEDS ORDERED: TETRACAINE 0.5% OPHTH SOLN 2 ML BOTTLE ONE (10:43)
[2021-04-26] MEDS ORDERED: BSS (NA/CA/MG/K) BALANCED SALT SOLUTION OPHTH SOLN 15 ML BOTTLE ONE (10:43)
[2021-04-26 11:30] VITALS: BP 152/84; PULSE 84
== END 2021-04-26 11:30 | disposition home or self-care (01) ==
LOC: FASU 08:07
PROVIDERS: ATTEND Ophthalmology
PROC: 08RJ3JZ Replacement of Right Lens with Synthetic Substitute, Percutaneous Approach (ICD-10-PCS; principal; 2021-04-26 10:32)
DX: H26.8 Other specified cataract (principal)

== ENCOUNTER 2023-04-05 10:54 | Inpatient (IN) | payer OTHER ==
[2023-04-05 11:12] VITALS: BMI 23.5
[2023-04-05] MEDS ORDERED: ALBUTEROL SO4 2.5/IPRATROPIUM 0.5 INH SOL 3 ML VIAL.NEB. NEB ONE (11:27)
[2023-04-05 12:31] LABS: HEMATOCRIT 45.1 % (35.4-49); HEMOGLOBIN 15.3 G/dL (11.7-16.9); MCH 26.6 pg (25.7-33.7); MCHC 33.9 g/dl (32.0-35.9); MEAN CELL VOLUME 78.7 fl (80-96); MEAN PLT VOLUME 8.5 fl (7.5-11.1); PLATELET COUNT 307.6 10^3/uL (134-434); RBC 5.73 10^6/uL (4.00-5.60); RDW 16.3 % (11.9-15.9); WHITE BLOOD COUNT 6.8 10^3/uL (4.0-10.8)
[2023-04-05 12:48] LABS: INR 1.27 (0.83-1.09); PROTHROMBIN TIME (PATIENT) 14.7 SEC (9.7-13.0)
[2023-04-05 12:58] LABS: ALBUMIN 3.8 g/dl (3.4-5.0); BILIRUBIN,TOTAL 0.8 mg/dl (0.2-1); CREATININE 0.8 mg/dl (0.6-1.3); POTASSIUM 4.2 mmol/L (3.5-5.1); TOT PROT 6.3 g/dl (6.4-8.2)
[2023-04-05 14:30] LABS: PLATELET ESTIMATE ADEQUATE
[2023-04-05 14:31] LABS: ANISOCYTOSIS 1+
[2023-04-05 14:34] LABS: VENOUS BASE EXCESS 1.2 mmol/L (-2-2); VENOUS O2 SATURATION 48.4 % (70-80); VENOUS PCO2 56.1 mmHg (38-52); VENOUS PH 7.326 (7.310-7.410)
[2023-04-05 15:58] LABS: N-TERMINAL BNP 517.5 pg/ml (5-450)
[2023-04-05] MEDS ORDERED: ALBUTEROL SO4 2.5/IPRATROPIUM 0.5 INH SOL 3 ML VIAL.NEB. NEB PRN (19:59)
[2023-04-06] MEDS: BUDESONIDE/FORMOTEROL FUMARATE 80-4.5 MCG (10.3 GM INHALER) IH SCH ×3 (00:06→21:21)
[2023-04-06] MEDS ORDERED: FUROSEMIDE 40 MG/4 ML INJECTABLE VIAL IVPUSH ONE (07:17)
[2023-04-06 08:50] LABS: CALCIUM 8.8 mg/dl (8.5-10.1); CREATININE 0.8 mg/dl (0.6-1.3); POTASSIUM 4.2 mmol/L (3.5-5.1)
[2023-04-06] MEDS ORDERED: ZANUBRUTINIB PO SCH (10:00)
[2023-04-06] MEDS ORDERED: PATIENT'S OWN MEDICATION (NON-FORMULARY) (Zanubrutinib [Brukinsa] 80 MG Capsule) PO SCH (10:00)
[2023-04-06] MEDS ORDERED: TIOTROPIUM BROMIDE 2.5 MCG (SPIRIVA) RESPIMAT INHALER IH SCH (10:00)
[2023-04-06] MEDS: predniSONE 20 MG TABLET (UD) PO SCH (10:20)
[2023-04-06 11:36] LABS: BASO % 1.2 % (0-2.0); EOS % 2.2 % (0-4.5); HEMOGLOBIN 13.6 GM/dL (11.7-16.9); LYMPH % 22.6 % (8-40); MCH 25.6 pg (25.7-33.7); MCHC 33.2 g/dl (32.0-35.9); MEAN CELL VOLUME 77.1 fl (80-96); MEAN PLT VOLUME 7.9 fl (7.5-11.1); MONO % 10.9 % (3.8-10.2); NEUT % 63.1 % (42.8-82.8); PLATELET COUNT 356 10^3/uL (134-434); RBC 5.32 M/mm3 (4.00-5.60); RDW 15.2 % (11.9-15.9)
[2023-04-06 12:37] LABS: ANISOCYTOSIS 2+
[2023-04-06] MEDS: ALBUTEROL SO4 2.5/IPRATROPIUM 0.5 INH SOL 3 ML VIAL.NEB. NEB SCH ×3 (14:11→20:28)
[2023-04-07] MEDS: ALBUTEROL SO4 2.5/IPRATROPIUM 0.5 INH SOL 3 ML VIAL.NEB. NEB SCH ×4 (08:19→21:19)
[2023-04-07 08:23] LABS: HEMATOCRIT 43.4 % (35.4-49); HEMOGLOBIN 13.8 G/dL (11.7-16.9); MCH 25.4 pg (25.7-33.7); MCHC 31.8 g/dl (32.0-35.9); MEAN CELL VOLUME 79.9 fl (80-96); MEAN PLT VOLUME 8.7 fl (7.5-11.1); PLATELET COUNT 304.8 10^3/uL (134-434); RBC 5.43 10^6/uL (4.00-5.60); RDW 16.6 % (11.9-15.9)
[2023-04-07 08:57] LABS: ALBUMIN 3.3 g/dl (3.4-5.0); BILIRUBIN,TOTAL 0.6 mg/dl (0.2-1); CALCIUM 8.8 mg/dl (8.5-10.1); CREATININE 0.8 mg/dl (0.6-1.3); MAGNESIUM 1.9 mg/dL (1.8-2.4); PHOSPHOROUS 4.2 (2.5-4.9); POTASSIUM 3.7 mmol/L (3.5-5.1); TOT PROT 5.5 g/dl (6.4-8.2)
[2023-04-07] MEDS: ENOXAPARIN NA (PORCINE) 40 MG/0.4 ML DISP.SYRIN SQ SCH (09:34)
[2023-04-07] MEDS: predniSONE 20 MG TABLET (UD) PO SCH (09:35)
[2023-04-07] MEDS: BUDESONIDE/FORMOTEROL FUMARATE 80-4.5 MCG (10.3 GM INHALER) IH SCH (09:36)
[2023-04-07] MEDS ORDERED: ALPRAZolam 0.25 MG TABLET PO PRN (12:34)
[2023-04-07] MEDS: TIOTROPIUM BROMIDE 2.5 MCG (SPIRIVA) RESPIMAT INHALER IH SCH (16:23)
[2023-04-07] MEDS: BUDESONIDE/FORMETEROL FUMARATE 160/4.5 mcg INHALER IH SCH (21:22)
[2023-04-08] MEDS: ALBUTEROL SO4 2.5/IPRATROPIUM 0.5 INH SOL 3 ML VIAL.NEB. NEB SCH ×4 (07:34→21:02)
[2023-04-08] MEDS: ENOXAPARIN NA (PORCINE) 40 MG/0.4 ML DISP.SYRIN SQ SCH (09:36)
[2023-04-08] MEDS: BUDESONIDE/FORMETEROL FUMARATE 160/4.5 mcg INHALER IH SCH ×2 (09:37→21:03)
[2023-04-08] MEDS: TIOTROPIUM BROMIDE 2.5 MCG (SPIRIVA) RESPIMAT INHALER IH SCH (09:37)
[2023-04-08] MEDS: predniSONE 20 MG TABLET (UD) PO SCH (09:38)
[2023-04-09 08:32] LABS: HEMATOCRIT 48.3 % (35.4-49); HEMOGLOBIN 15.3 G/dL (11.7-16.9); MCH 25.2 pg (25.7-33.7); MCHC 31.7 g/dl (32.0-35.9); MEAN CELL VOLUME 79.5 fl (80-96); MEAN PLT VOLUME 8.6 fl (7.5-11.1); PLATELET COUNT 340.8 10^3/uL (134-434); RBC 6.07 10^6/uL (4.00-5.60); RDW 16.7 % (11.9-15.9); WHITE BLOOD COUNT 6.3 10^3/uL (4.0-10.8)
[2023-04-09] MEDS: ALBUTEROL SO4 2.5/IPRATROPIUM 0.5 INH SOL 3 ML VIAL.NEB. NEB SCH ×4 (08:54→21:26)
[2023-04-09] MEDS: predniSONE 20 MG TABLET (UD) PO SCH (09:30)
[2023-04-09] MEDS: TIOTROPIUM BROMIDE 2.5 MCG (SPIRIVA) RESPIMAT INHALER IH SCH (09:31)
[2023-04-09] MEDS: ENOXAPARIN NA (PORCINE) 40 MG/0.4 ML DISP.SYRIN SQ SCH (09:31)
[2023-04-09] MEDS: BUDESONIDE/FORMETEROL FUMARATE 160/4.5 mcg INHALER IH SCH ×2 (09:31→21:26)
[2023-04-09] MEDS ORDERED: ALPRAZolam 1 MG TABLET PO PRN (09:51)
[2023-04-09 09:54] LABS: CALCIUM 9.1 mg/dl (8.5-10.1); CREATININE 0.8 mg/dl (0.6-1.3); POTASSIUM 4.3 mmol/L (3.5-5.1)
[2023-04-09 15:40] LABS: BF WBC & OTHER NUCLEATED CELLS 6124 /mm3
[2023-04-09 16:22] LABS: BODY FLUID MONOCYTE 2 %
[2023-04-09] MEDS: ALPRAZolam 0.25 MG TABLET PO PRN (17:29)
[2023-04-10] MEDS: ALBUTEROL SO4 2.5/IPRATROPIUM 0.5 INH SOL 3 ML VIAL.NEB. NEB SCH ×4 (08:34→22:42)
[2023-04-10] MEDS: TIOTROPIUM BROMIDE 2.5 MCG (SPIRIVA) RESPIMAT INHALER IH SCH (09:33)
[2023-04-10] MEDS: BUDESONIDE/FORMETEROL FUMARATE 160/4.5 mcg INHALER IH SCH (09:34)
[2023-04-10] MEDS: predniSONE 20 MG TABLET (UD) PO SCH (09:35)
[2023-04-10] MEDS: ALPRAZolam 0.25 MG TABLET PO PRN (09:35)
[2023-04-10] MEDS ORDERED: FUROSEMIDE 40 MG/4 ML INJECTABLE VIAL IVPUSH ONE (10:15)
[2023-04-10] MEDS: FLUTICASONE/UMECLIDIN/VILANTER(200-62.5-25 TRELEGY ELLIPTA) INAHLER IH SCH (10:21)
[2023-04-10] MEDS: CEFTRIAXONE 1 GM in DEXTROSE 5%-WATER - 50 ML IVPB SCH (10:21)
[2023-04-11 09:05] LABS: ALBUMIN 3.1 g/dl (3.4-5.0); BILIRUBIN,TOTAL 0.9 mg/dl (0.2-1); CALCIUM 8.6 mg/dl (8.5-10.1); CREATININE 0.8 mg/dl (0.6-1.3); POTASSIUM 4.2 mmol/L (3.5-5.1); TOT PROT 5.2 g/dl (6.4-8.2)
[2023-04-11 09:39] LABS: HEMATOCRIT 44.6 % (35.4-49); HEMOGLOBIN 14.3 GM/dL (11.7-16.9); MCH 24.9 pg (25.7-33.7); MCHC 31.9 g/dl (32.0-35.9); MEAN CELL VOLUME 78.1 fl (80-96); MEAN PLT VOLUME 7.9 fl (7.5-11.1); PLATELET COUNT 321 10^3/uL (134-434); RBC 5.71 M/mm3 (4.00-5.60); RDW 15.3 % (11.9-15.9); WHITE BLOOD COUNT 9.7 K/mm3 (4.0-10.0)
[2023-04-11] MEDS: CEFTRIAXONE 1 GM in DEXTROSE 5%-WATER - 50 ML IVPB SCH (09:59)
[2023-04-11] MEDS: ALBUTEROL SO4 2.5/IPRATROPIUM 0.5 INH SOL 3 ML VIAL.NEB. NEB SCH ×2 (10:00→22:20)
[2023-04-11] MEDS: FLUTICASONE/UMECLIDIN/VILANTER(200-62.5-25 TRELEGY ELLIPTA) INAHLER IH SCH (10:01)
[2023-04-11] MEDS: predniSONE 20 MG TABLET (UD) PO SCH (10:19)
[2023-04-11] MEDS: ENOXAPARIN NA (PORCINE) 40 MG/0.4 ML DISP.SYRIN SQ SCH (10:21)
[2023-04-11 10:28] LABS: ANISOCYTOSIS 0; MACROCYTOSIS 0
[2023-04-12 08:37] LABS: BILIRUBIN,TOTAL 0.5 mg/dl (0.2-1); CALCIUM 8.5 mg/dl (8.5-10.1); CREATININE 0.7 mg/dl (0.6-1.3); TOT PROT 5.1 g/dl (6.4-8.2)
[2023-04-12] MEDS: CEFTRIAXONE 1 GM in DEXTROSE 5%-WATER - 50 ML IVPB SCH (09:23)
[2023-04-12] MEDS: ALBUTEROL SO4 2.5/IPRATROPIUM 0.5 INH SOL 3 ML VIAL.NEB. NEB SCH (09:23)
[2023-04-12] MEDS: ENOXAPARIN NA (PORCINE) 40 MG/0.4 ML DISP.SYRIN SQ SCH (09:23)
[2023-04-12] MEDS: predniSONE 20 MG TABLET (UD) PO SCH (09:23)
[2023-04-12] MEDS: FLUTICASONE/UMECLIDIN/VILANTER(200-62.5-25 TRELEGY ELLIPTA) INAHLER IH SCH (09:24)
[2023-04-12 09:31] LABS: HEMATOCRIT 41.9 % (35.4-49); HEMOGLOBIN 13.7 GM/dL (11.7-16.9); MCH 25.4 pg (25.7-33.7); MCHC 32.7 g/dl (32.0-35.9); MEAN CELL VOLUME 77.6 fl (80-96); PLATELET COUNT 311 10^3/uL (134-434); RDW 15.1 % (11.9-15.9); WHITE BLOOD COUNT 9.6 K/mm3 (4.0-10.0)
[2023-04-12 10:32] LABS: ANISOCYTOSIS 0; MACROCYTOSIS 0
[2023-04-12 10:39] VITALS: BP 114/47; PULSE 94; RESP 16; TEMP 97.9
[2023-04-12 14:12] LABS: BODY FLUID ALBUMIN 2.4 g/dL (Not Estab.)
== END 2023-04-12 13:24 | disposition home or self-care (01) | DRG 191 ==
LOC: FER 10:54 → FM/S 16:30 → J2C 04-09 13:35 → FM/S 04-09 14:52 → OBSVTOIN 04-10 10:10
PROVIDERS: ADMIT Internal Medicine
PROC: 0W993ZZ Drainage of Right Pleural Cavity, Percutaneous Approach (ICD-10-PCS; principal; 2023-04-09)
DX: J44.1 Chronic obstructive pulmonary disease with (acute) exacerbation (principal); C91.10 Chronic lymphocytic leukemia of B-cell type not having achieved remission; J90 Pleural effusion, not elsewhere classified; Z99.81 Dependence on supplemental oxygen; R09.02 Hypoxemia; J40 Bronchitis, not specified as acute or chronic
CPT/HCPCS: 0241U-QW; 36415; 71045-TC-FY; 71250-TC; 76942; 80048; 80053; 82042; 82150; 82465; 82803; 82945; 83615; 83735; 83880; 83986; 84100; 84157; 84478; 84484; 85025; 85027; 85610; 87070; 87075; 87102; 87116; 87205; 87206; 87210; 88108; 88305-TC; 93005; 93306-TC; 94640; 94761; 97116-GP; 97162-GP; 99285-25; G0378

== ENCOUNTER 2023-10-22 09:43 | Inpatient (IN) | payer OTHER ==
[2023-10-22] MEDS ORDERED: ALBUTEROL SO4 2.5/IPRATROPIUM 0.5 INH SOL 3 ML VIAL.NEB. NEB ONE (10:22)
[2023-10-22] MEDS: ALBUTEROL SO4 2.5/IPRATROPIUM 0.5 INH SOL 3 ML VIAL.NEB. NEB ONE (10:40)
[2023-10-22 10:53] LABS: HEMATOCRIT 45.9 % (35.4-49); HEMOGLOBIN 14.9 G/dL (11.7-16.9); MCH 26.1 pg (25.7-33.7); MCHC 32.5 g/dl (32.0-35.9); MEAN CELL VOLUME 80.4 fl (80-96); MEAN PLT VOLUME 9.1 fl (7.5-11.1); PLATELET COUNT 269.2 10^3/uL (134-434); RBC 5.71 10^6/uL (4.00-5.60); RDW 15.2 % (11.9-15.9); WHITE BLOOD COUNT 11.7 10^3/uL (4.0-10.8)
[2023-10-22 10:58] LABS: ALBUMIN 3.9 g/dl (3.4-5.0); BILIRUBIN,TOTAL 1.1 mg/dl (0.2-1); CALCIUM 8.8 mg/dl (8.5-10.1); POTASSIUM 3.8 mmol/L (3.5-5.1); TOT PROT 6.1 g/dl (6.4-8.2)
[2023-10-22 11:23] LABS: PLATELET ESTIMATE ADEQUATE
[2023-10-22 11:56] LABS: VENOUS BASE EXCESS 3.3 mmol/L (-2-2); VENOUS O2 SATURATION 32.2 % (70-80); VENOUS PH 7.328 (7.310-7.410)
[2023-10-22 12:18] LABS: N-TERMINAL BNP 347.8 pg/ml (5-450)
[2023-10-22] MEDS ORDERED: AZITHROMYCIN 500 MG VIAL IVPB ONE (13:44)
[2023-10-22] MEDS ORDERED: cefTRIAXone SODIUM 1 GM VIAL ONE (13:44)
[2023-10-22] MEDS: CEFTRIAXONE 1,000 MG in DEXTROSE 5%-WATER - 50 ML IVPB ONE (14:00)
[2023-10-22] MEDS ORDERED: CEFEPIME HCL 1 GM VIAL (RESTRICTED TO ID) IVPB ONE (14:44)
[2023-10-22] MEDS: AZITHROMYCIN IVPB 500 MG in DEXTROSE 5%-WATER - 250 ML IVPB ONE (15:13)
[2023-10-22] MEDS: FUROSEMIDE 40 MG/4 ML INJECTABLE VIAL IVPUSH ONE (15:23)
[2023-10-22] MEDS: CEFEPIME 1 GM in DEXTROSE 5%-WATER 100 ML IVPB ONE (16:49)
[2023-10-22] MEDS: ALBUTEROL SO4 2.5/IPRATROPIUM 0.5 INH SOL 3 ML VIAL.NEB. NEB SCH (16:50)
[2023-10-22 17:29] VITALS: BMI 24.6
[2023-10-22] MEDS ORDERED: ALBUTEROL SO4 HFA INHALER IH PRN (23:20)
[2023-10-22] MEDS ORDERED: ALBUTEROL SO4 0.083% IH SOL 2.5 MG/3 ML VIAL.NEB. NEB PRN (23:20)
[2023-10-23] MEDS: CEFEPIME 1 GM in DEXTROSE 5%-WATER 100 ML IVPB SCH (01:07)
[2023-10-23] MEDS ORDERED: FLUTICASONE/UMECLIDIN/VILANTER(200-62.5-25 TRELEGY ELLIPTA) INAHLER IH SCH (10:00)
[2023-10-23] MEDS ORDERED: PATIENT'S OWN MEDICATION (NON-FORMULARY) (Zanubrutinib [Brukinsa] 80 MG Capsule) PO SCH (10:00)
[2023-10-23] MEDS: ENOXAPARIN NA (PORCINE) 40 MG/0.4 ML DISP.SYRIN SQ SCH (10:49)
[2023-10-23] MEDS ORDERED: DEXTROSE 5%-WATER 100 ML IVPB ONE (11:07)
[2023-10-23 11:14] LABS: HEMATOCRIT 47.4 % (35.4-49); HEMOGLOBIN 14.9 G/dL (11.7-16.9); MCH 25.3 pg (25.7-33.7); MCHC 31.4 g/dl (32.0-35.9); MEAN CELL VOLUME 80.7 fl (80-96); MEAN PLT VOLUME 8.7 fl (7.5-11.1); PLATELET COUNT 278.1 10^3/uL (134-434); RBC 5.87 10^6/uL (4.00-5.60); RDW 15.8 % (11.9-15.9); WHITE BLOOD COUNT 8.4 10^3/uL (4.0-10.8)
[2023-10-23 11:35] LABS: ALBUMIN 3.8 g/dl (3.4-5.0); BILIRUBIN,TOTAL 0.6 mg/dl (0.2-1); CALCIUM 8.7 mg/dl (8.5-10.1); CREATININE 0.9 mg/dl (0.6-1.3); POTASSIUM 3.8 mmol/L (3.5-5.1)
[2023-10-23] MEDS: AZITHROMYCIN IVPB 500 MG/250 ML BAG IVPB SCH ×2 (16:37→17:40)
[2023-10-24] MEDS: AZITHROMYCIN IVPB 500 MG/250 ML BAG IVPB SCH (09:09)
[2023-10-24] MEDS: methylPREDNISolone NA SUCC 125 MG/2 ML VIAL IVPUSH SCH (12:29)
[2023-10-24 13:44] VITALS: RESP 18
[2023-10-25 09:10] VITALS: BP 123/68; PULSE 88; TEMP 97.1
== END 2023-10-25 12:15 | disposition home or self-care (01) | DRG 190 ==
LOC: FER 09:43 → FM/S 12:15
DX: J44.1 Chronic obstructive pulmonary disease with (acute) exacerbation (principal); J18.9 Pneumonia, unspecified organism; C91.10 Chronic lymphocytic leukemia of B-cell type not having achieved remission; J96.11 Chronic respiratory failure with hypoxia; J90 Pleural effusion, not elsewhere classified; I50.30 Unspecified diastolic (congestive) heart failure; J44.0 Chronic obstructive pulmonary disease with (acute) lower respiratory infection; Z85.46 Personal history of malignant neoplasm of prostate; Z99.81 Dependence on supplemental oxygen
CPT/HCPCS: 0241U-QW; 36415; 71045-TC-FY; 71250-TC; 80053; 80061; 81003; 82803; 83735; 83880; 84443; 84484; 85025; 85027; 87040; 87070; 87086; 87186; 87205; 87899; 93005; 93970-TC; 94640; 99285-25

== ENCOUNTER 2024-03-17 19:40 | Inpatient (IN) | payer OTHER ==
[2024-03-17] MEDS: methylPREDNISolone NA SUCC 125 MG/2 ML VIAL IVPUSH ONE (19:58)
[2024-03-17] MEDS: SODIUM CHLORIDE 1,000 ML IV ONE (19:59)
[2024-03-17] MEDS: ALBUTEROL SO4 2.5/IPRATROPIUM 0.5 INH SOL 3 ML VIAL.NEB. NEB SCH (19:59)
[2024-03-17 20:06] LABS: HEMATOCRIT 45.6 % (35.4-49); MCH 25.6 pg (25.7-33.7); MCHC 32.9 g/dl (32.0-35.9); MEAN PLT VOLUME 8.9 fl (7.5-11.1); RBC 5.85 10^6/uL (4.00-5.60); RDW 15.3 % (11.9-15.9); WHITE BLOOD COUNT 7.2 10^3/uL (4.0-10.8)
[2024-03-17 20:27] LABS: ALBUMIN 4.2 g/dl (3.4-5.0); BILIRUBIN,TOTAL 0.7 mg/dl (0.2-1); CALCIUM 9.3 mg/dl (8.5-10.1); MAGNESIUM 1.9 mg/dL (1.8-2.4); POTASSIUM 4.2 mmol/L (3.5-5.1); TOT PROT 6.7 g/dl (6.4-8.2)
[2024-03-17 22:20] LABS: VENOUS BASE EXCESS 4.1 mmol/L (-2-2); VENOUS O2 SATURATION 57.4 % (70-80); VENOUS PCO2 57.9 mmHg (38-52); VENOUS PH 7.35 (7.310-7.410)
[2024-03-17 22:34] LABS: N-TERMINAL BNP 318.3 pg/ml (5-450)
[2024-03-17] MEDS ORDERED: ACETAMINOPHEN 325 MG TABLET (FP) PO PRN (23:00)
[2024-03-17] MEDS ORDERED: ALBUTEROL SO4 2.5/IPRATROPIUM 0.5 INH SOL 3 ML VIAL.NEB. NEB PRN (23:05)
[2024-03-18 01:06] VITALS: BMI 24.5
[2024-03-18] MEDS: methylPREDNISolone NA SUCC 40 MG/1 ML VIAL IVPUSH SCH (02:08)
[2024-03-18] MEDS: REMDESIVIR 200 MG in SODIUM CHLORIDE 250 ML IVPB ONE (06:32)
[2024-03-18] MEDS ORDERED: IPRATROPIUM BR 0.02% 0.5 MG/2.5 ML VIAL.NEB. NEB PRN (09:33)
[2024-03-18 09:42] LABS: CALCIUM 8.4 mg/dl (8.5-10.1); CREATININE 0.7 mg/dl (0.6-1.3); PHOSPHOROUS 3.6 (2.5-4.9)
[2024-03-18] MEDS ORDERED: PATIENT'S OWN MEDICATION (NON-FORMULARY) (Zanubrutinib [Brukinsa] 80 MG Capsule) PO SCH (10:00)
[2024-03-18] MEDS ORDERED: FUROSEMIDE 20 MG TABLET (FP) PO SCH (10:00)
[2024-03-18] MEDS: guaiFENesin/D-METHORPHAN TAB.ER.12H PO SCH (10:11)
[2024-03-18] MEDS: FUROSEMIDE 40 MG/4 ML INJECTABLE VIAL IVPUSH SCH (10:11)
[2024-03-18] MEDS: FLUTICASONE/UMECLIDIN/VILANTER(200-62.5-25 TRELEGY ELLIPTA) INAHLER IH SCH (10:12)
[2024-03-18] MEDS: ENOXAPARIN NA (PORCINE) 40 MG/0.4 ML DISP.SYRIN SQ SCH (10:12)
[2024-03-18] MEDS: ALBUTEROL SO4 0.083% IH SOL 2.5 MG/3 ML VIAL.NEB. NEB SCH ×2 (10:18→10:57)
[2024-03-18] MEDS: ROFLUMILAST 500 MCG TABLET PO SCH (10:18)
[2024-03-18 10:51] LABS: HEMATOCRIT 36.7 % (35.4-49); HEMOGLOBIN 12.3 GM/dL (11.7-16.9); MCH 25.1 pg (25.7-33.7); MCHC 33.4 g/dl (32.0-35.9); MEAN CELL VOLUME 75.2 fl (80-96); MEAN PLT VOLUME 7.9 fl (7.5-11.1); PLATELET COUNT 300 10^3/uL (134-434); RBC 4.88 M/mm3 (4.00-5.60); RDW 14.8 % (11.9-15.9); WHITE BLOOD COUNT 5.1 K/mm3 (4.0-10.0)
[2024-03-18] MEDS: ALBUTEROL SO4 0.5 % INH SOLN 2.5 MG/0.5 ML VIAL.NEB. NEB SCH (10:57)
[2024-03-18] MEDS: ALBUTEROL SO4 2.5/IPRATROPIUM 0.5 INH SOL 3 ML VIAL.NEB. NEB SCH (10:57)
[2024-03-18 12:58] LABS: ANISOCYTOSIS 0; HELMET CELLS 0; HOWELL-JOLLY BODIES 0; MACROCYTOSIS 0; OVALOCYTE 0; ROULEAU 0; SICKELED CELLS 0; TARGET CELLS 0; TEAR DROP CELLS 0; TOXIC GRANULATION 0
[2024-03-19] MEDS: REMDESIVIR 100 MG in SODIUM CHLORIDE 250 ML IVPB SCH (06:18)
[2024-03-19 09:04] LABS: ALBUMIN 3.4 g/dl (3.4-5.0); BILIRUBIN,TOTAL 0.4 mg/dl (0.2-1); CALCIUM 8.5 mg/dl (8.5-10.1); CREATININE 0.8 mg/dl (0.6-1.3); MAGNESIUM 1.8 mg/dL (1.8-2.4); PHOSPHOROUS 3.2 (2.5-4.9); POTASSIUM 3.6 mmol/L (3.5-5.1); TOT PROT 5.4 g/dl (6.4-8.2)
[2024-03-19 09:44] LABS: HEMATOCRIT 38.9 % (35.4-49); HEMOGLOBIN 12.9 GM/dL (11.7-16.9); MCHC 33.1 g/dl (32.0-35.9); MEAN CELL VOLUME 75.4 fl (80-96); PLATELET COUNT 330 10^3/uL (134-434); RBC 5.16 M/mm3 (4.00-5.60); RDW 15.1 % (11.9-15.9); WHITE BLOOD COUNT 7.3 K/mm3 (4.0-10.0)
[2024-03-19 10:10] LABS: ANISOCYTOSIS 0; MACROCYTOSIS 0
[2024-03-19] MEDS: FUROSEMIDE 20 MG TABLET (FP) PO SCH (10:25)
[2024-03-19] MEDS: PANTOPRAZOLE 40 MG TABLET PO SCH (10:25)
[2024-03-19] MEDS: DEXAMETHASONE SOD PHOSPHATE 10 MG/1 ML VIAL IVPUSH SCH (10:26)
[2024-03-19] MEDS: ALPRAZolam 0.25 MG TABLET PO PRN (10:34)
[2024-03-20 07:36] LABS: HEMATOCRIT 37.9 % (35.4-49); HEMOGLOBIN 12.3 G/dL (11.7-16.9); MCHC 32.4 g/dl (32.0-35.9); MEAN CELL VOLUME 77.1 fl (80-96); MEAN PLT VOLUME 9.1 fl (7.5-11.1); PLATELET COUNT 255.7 10^3/uL (134-434); RBC 4.92 10^6/uL (4.00-5.60); RDW 15.5 % (11.9-15.9); WHITE BLOOD COUNT 4.7 10^3/uL (4.0-10.8)
[2024-03-20 07:57] LABS: ALBUMIN 3.2 g/dl (3.4-5.0); BILIRUBIN,TOTAL 0.5 mg/dl (0.2-1); CALCIUM 8.1 mg/dl (8.5-10.1); CREATININE 0.8 mg/dl (0.6-1.3); MAGNESIUM 1.8 mg/dL (1.8-2.4); PHOSPHOROUS 3.1 (2.5-4.9); POTASSIUM 3.7 mmol/L (3.5-5.1); TOT PROT 4.9 g/dl (6.4-8.2)
[2024-03-21] MEDS: ALPRAZolam 0.25 MG TABLET PO PRN (09:39)
[2024-03-21] MEDS: SODIUM CHLORIDE NASAL SPRAY 44 ML BOTTLE NS SCH (17:19)
[2024-03-22 02:04] VITALS: RESP 18
[2024-03-22 06:21] VITALS: BP 138/68; TEMP 97.6
[2024-03-22 09:01] LABS: HEMOGLOBIN 12.5 G/dL (11.7-16.9); MCH 24.8 pg (25.7-33.7); MCHC 31.9 g/dl (32.0-35.9); MEAN CELL VOLUME 77.5 fl (80-96); MEAN PLT VOLUME 9.2 fl (7.5-11.1); PLATELET COUNT 266.5 10^3/uL (134-434); RBC 5.03 10^6/uL (4.00-5.60); RDW 16.4 % (11.9-15.9); WHITE BLOOD COUNT 5.5 10^3/uL (4.0-10.8)
[2024-03-22 09:40] LABS: ALBUMIN 3.2 g/dl (3.4-5.0); BILIRUBIN,TOTAL 0.5 mg/dl (0.2-1); CALCIUM 8.2 mg/dl (8.5-10.1); CREATININE 0.7 mg/dl (0.6-1.3); PHOSPHOROUS 3.2 (2.5-4.9); POTASSIUM 3.8 mmol/L (3.5-5.1); TOT PROT 4.8 g/dl (6.4-8.2)
[2024-03-22 11:41] VITALS: PULSE 87
== END 2024-03-22 14:05 | disposition home or self-care (01) | DRG 177 ==
LOC: FER 19:40 → FM/S 20:32
PROVIDERS: ADMIT Internal Medicine; ATTEND Internal Medicine
PROC: XW033E5 Introduction of Remdesivir Anti-infective into Peripheral Vein, Percutaneous Approach, New Technology Group 5 (ICD-10-PCS; principal; 2024-03-17)
DX: U07.1 COVID-19 (principal); J96.01 Acute respiratory failure with hypoxia; J44.1 Chronic obstructive pulmonary disease with (acute) exacerbation; I50.32 Chronic diastolic (congestive) heart failure; C91.10 Chronic lymphocytic leukemia of B-cell type not having achieved remission
CPT/HCPCS: 0241U-QW; 36415; 71045-TC-FY; 80048; 80053; 82550; 82803; 83605; 83735; 83880; 84100; 84484; 85025; 85027; 85730; 86140; 93005; 94640; 94761; 97116-GP; 97162-GP; 99285-25; J0248; J1100

== ENCOUNTER 2024-04-23 10:28 | Inpatient (IN) | payer OTHER ==
[2024-04-23] MEDS: ALBUTEROL SO4 2.5/IPRATROPIUM 0.5 INH SOL 3 ML VIAL.NEB. NEB SCH (10:56)
[2024-04-23] MEDS: methylPREDNISolone NA SUCC 125 MG/2 ML VIAL IVPB ONE (10:56)
[2024-04-23] MEDS ORDERED: methylPREDNISolone NA SUCC 125 MG/2 ML VIAL ONE (10:57)
[2024-04-23] MEDS ORDERED: ALBUTEROL SO4 2.5/IPRATROPIUM 0.5 INH SOL 3 ML VIAL.NEB. NEB ONE ×2 (10:57→11:25)
[2024-04-23 11:24] LABS: HEMATOCRIT 45.8 % (35.4-49); HEMOGLOBIN 14.1 G/dL (11.7-16.9); MCH 23.6 pg (25.7-33.7); MCHC 30.9 g/dl (32.0-35.9); MEAN CELL VOLUME 76.3 fl (80-96); MEAN PLT VOLUME 9.1 fl (7.5-11.1); PLATELET COUNT 598.6 10^3/uL (134-434); RDW 15.5 % (11.9-15.9)
[2024-04-23 11:33] LABS: INR 1.33 (0.83-1.09)
[2024-04-23 11:36] LABS: ACTIVATED PTT 30.8 SECONDS (25.2-36.5); WHITE BLOOD COUNT 35.5 10^3/uL (4.0-10.8)
[2024-04-23 11:55] LABS: ALBUMIN 3.3 g/dl (3.4-5.0); BILIRUBIN,TOTAL 0.9 mg/dl (0.2-1); CREATININE 0.9 mg/dl (0.6-1.3); POTASSIUM 4.3 mmol/L (3.5-5.1); TOT PROT 6.1 g/dl (6.4-8.2)
[2024-04-23 12:38] VITALS: BMI 21.7
[2024-04-23] MEDS ORDERED: VANCOMYCIN 1,000 MG VIAL (RESTRICTED TO ID ONLY) ONE (13:54)
[2024-04-23] MEDS: VANCOMYCIN 1,000 MG in DEXTROSE 5%-WATER - 250 ML IVPB ONE (14:00)
[2024-04-23] MEDS: PIPERACILLIN/TAZOB 3.375 GM 3.375 GM in DEXTROSE 5%-WATER - 50 ML IVPB ONE (15:21)
[2024-04-23] MEDS ORDERED: PIPERACILLIN/TAZOBACTAM 3.375 GM VIAL IVPB ONE (15:35)
[2024-04-23] MEDS: REMDESIVIR 200 MG in SODIUM CHLORIDE 250 ML IVPB ONE (21:53)
[2024-04-23] MEDS: FLUTICASONE/UMECLIDIN/VILANTER(100-62.5-25 TRELEGY ELLIPTA) INAHLER IH SCH (21:54)
[2024-04-23] MEDS: LEVALBUTEROL HCL 0.63 MG/3 ML VIAL.NEB. IH PRN (21:54)
[2024-04-24 08:34] LABS: ALBUMIN 2.7 g/dl (3.4-5.0); BILIRUBIN,TOTAL 0.5 mg/dl (0.2-1); CALCIUM 8.3 mg/dl (8.5-10.1); CREATININE 0.7 mg/dl (0.6-1.3); MAGNESIUM 2.1 mg/dL (1.8-2.4); PHOSPHOROUS 4.6 (2.5-4.9); POTASSIUM 4.2 mmol/L (3.5-5.1); TOT PROT 4.9 g/dl (6.4-8.2)
[2024-04-24 09:11] LABS: HEMATOCRIT 38.8 % (35.4-49); HEMOGLOBIN 11.8 GM/dL (11.7-16.9); MCH 22.6 pg (25.7-33.7); MCHC 30.5 g/dl (32.0-35.9); MEAN PLT VOLUME 8.3 fl (7.5-11.1); PLATELET COUNT 487 10^3/uL (134-434); RBC 5.24 M/mm3 (4.00-5.60); RDW 15.3 % (11.9-15.9); WHITE BLOOD COUNT 24.5 K/mm3 (4.0-10.0)
[2024-04-24 09:50] LABS: ANISOCYTOSIS 0; MACROCYTOSIS 0
[2024-04-24] MEDS ORDERED: PIPERACILLIN/TAZOB 3.375 GM 3.375 GM in DEXTROSE 5%-WATER - 50 ML IVPB SCH (10:45)
[2024-04-24] MEDS: PIPERACILLIN/TAZOB 3.375 GM 3.375 GM in DEXTROSE 5%-WATER - 50 ML IVPB SCH ×2 (11:31→17:40)
[2024-04-24] MEDS: ALBUTEROL SO4 2.5/IPRATROPIUM 0.5 INH SOL 3 ML VIAL.NEB. NEB SCH (11:31)
[2024-04-24] MEDS: methylPREDNISolone NA SUCC 40 MG/1 ML VIAL IVPUSH SCH (11:31)
[2024-04-24] MEDS: FUROSEMIDE 40 MG/4 ML INJECTABLE VIAL IVPUSH ONE (11:43)
[2024-04-24] MEDS ORDERED: REMDESIVIR 200 MG in SODIUM CHLORIDE 250 ML IVPB ONE (11:45)
[2024-04-24] MEDS: ALPRAZolam 0.25 MG TABLET PO PRN (12:27)
[2024-04-24] MEDS ORDERED: REMDESIVIR 100 MG in SODIUM CHLORIDE 250 ML IVPB SCH (15:30)
[2024-04-24] MEDS: REMDESIVIR 100 MG in SODIUM CHLORIDE 250 ML IVPB SCH (20:23)
[2024-04-24] MEDS: guaiFENesin 600 MG TABLET.ER (FP) PO SCH (20:24)
[2024-04-25 11:51] LABS: HEMATOCRIT 41.3 % (35.4-49); HEMOGLOBIN 13.1 G/dL (11.7-16.9); MCH 24.2 pg (25.7-33.7); MCHC 31.8 g/dl (32.0-35.9); MEAN CELL VOLUME 76.1 fl (80-96); MEAN PLT VOLUME 9.1 fl (7.5-11.1); PLATELET COUNT 477.9 10^3/uL (134-434); RBC 5.43 10^6/uL (4.00-5.60); RDW 15.5 % (11.9-15.9); WHITE BLOOD COUNT 25.8 10^3/uL (4.0-10.8)
[2024-04-25] MEDS: AMINO ACIDS 4.25%/D5W 1,000 ML IV SCH (12:57)
[2024-04-25 13:12] LABS: PLATELET ESTIMATE INCREASED
[2024-04-26 09:30] LABS: ALBUMIN 2.8 g/dl (3.4-5.0); BILIRUBIN,TOTAL 0.4 mg/dl (0.2-1); CALCIUM 8.3 mg/dl (8.5-10.1); CREATININE 0.7 mg/dl (0.6-1.3); POTASSIUM 4.4 mmol/L (3.5-5.1); TOT PROT 4.7 g/dl (6.4-8.2)
[2024-04-26 11:45] LABS: HEMATOCRIT 38.7 % (35.4-49); HEMOGLOBIN 11.7 GM/dL (11.7-16.9); MCH 22.5 pg (25.7-33.7); MCHC 30.2 g/dl (32.0-35.9); MEAN CELL VOLUME 74.6 fl (80-96); MEAN PLT VOLUME 8.4 fl (7.5-11.1); PLATELET COUNT 456 10^3/uL (134-434); RBC 5.18 M/mm3 (4.00-5.60); RDW 15.5 % (11.9-15.9); WHITE BLOOD COUNT 20.3 K/mm3 (4.0-10.0)
[2024-04-27 09:14] LABS: ALBUMIN 2.8 g/dl (3.4-5.0); BILIRUBIN,TOTAL 0.5 mg/dl (0.2-1); CALCIUM 8.2 mg/dl (8.5-10.1); CREATININE 0.6 mg/dl (0.6-1.3); POTASSIUM 4.4 mmol/L (3.5-5.1); TOT PROT 4.8 g/dl (6.4-8.2)
[2024-04-27 12:00] LABS: HEMATOCRIT 39.8 % (35.4-49); HEMOGLOBIN 12.1 GM/dL (11.7-16.9); MCH 22.7 pg (25.7-33.7); MCHC 30.5 g/dl (32.0-35.9); MEAN CELL VOLUME 74.4 fl (80-96); MEAN PLT VOLUME 8.5 fl (7.5-11.1); PLATELET COUNT 443 10^3/uL (134-434); RBC 5.35 M/mm3 (4.00-5.60); RDW 15.2 % (11.9-15.9); WHITE BLOOD COUNT 17.4 K/mm3 (4.0-10.0)
[2024-04-27 12:21] LABS: HEPATITIS B SURFACE AG MATERN NON-REACTIVE (NONREACTIVE)
[2024-04-27 12:41] LABS: ANISOCYTOSIS 1+; MACROCYTOSIS 0; OVALOCYTE 1+
[2024-04-27 12:45] LABS: ERYTHROCYTE SEDIMENTATION RATE 37 mm/hr (0-20)
[2024-04-28] MEDS: ENOXAPARIN NA (PORCINE) 40 MG/0.4 ML DISP.SYRIN SQ SCH (09:58)
[2024-04-28] MEDS: predniSONE 20 MG TABLET (UD) PO SCH (09:58)
[2024-04-28] MEDS: PANTOPRAZOLE 40 MG TABLET PO SCH (09:58)
[2024-04-28 10:41] VITALS: RESP 20
[2024-04-28 14:39] VITALS: BP 117/54; PULSE 91; TEMP 98.2
[2024-04-29 00:06] LABS: FIBROSIS SCORE. 0.48 (0.00-0.21); HCV ALPHA 2 MACRO CHART 210 mg/dL (110-276); NECRO.INFLAM ACT.SCORE 0.73 (0.00-0.17); NECROINFLAM. ACTIVITY GRADE A3-Severe activity (.)
== END 2024-04-28 17:14 | disposition home or self-care (01) | DRG 177 ==
LOC: FER 10:28 → FM/S 15:23
PROVIDERS: ATTEND Internal Medicine
PROC: XW033E5 Introduction of Remdesivir Anti-infective into Peripheral Vein, Percutaneous Approach, New Technology Group 5 (ICD-10-PCS; principal; 2024-04-23)
DX: U07.1 COVID-19 (principal); J12.82 Pneumonia due to coronavirus disease 2019; I50.32 Chronic diastolic (congestive) heart failure; J44.1 Chronic obstructive pulmonary disease with (acute) exacerbation; C91.10 Chronic lymphocytic leukemia of B-cell type not having achieved remission; Z99.81 Dependence on supplemental oxygen; R79.89 Other specified abnormal findings of blood chemistry
CPT/HCPCS: 0241U-QW; 36415; 71045-TC-FY; 71250-TC; 76700-TC; 80053; 82172; 82977; 83010; 83735; 83880; 83883; 84100; 84460; 84484; 85025; 85027; 85610; 85651; 85730; 86140; 86708; 87340; 93005; 94640; 97116-GP; 97162-GP; 99285-25; J0248